=== PATIENT | female | born 1980 | race Hispanic/Latino ===

== ENCOUNTER 2017-11-16 20:59 | Emergency (ER) | payer OTHER ==
[2017-11-16] MEDS ORDERED: DEXAMETHASONE SOD PHOSPHATE 10MG/ML 1ML VIAL ONE (21:59)
[2017-11-16 22:58] LABS: RAPID GROUP A STREP NEGATIVE (NEGATIVE)
== END 2017-11-16 23:30 | disposition home or self-care (01) ==
LOC: EDH 20:59
DX: J40 Bronchitis, not specified as acute or chronic (principal); E11.9 Type 2 diabetes mellitus without complications; E07.9 Disorder of thyroid, unspecified; Z98.890 Other specified postprocedural states
CPT/HCPCS: 71046; 87804 ×2; 87880; 96372; 99285; J1100